=== PATIENT | female | born 1995 | race Caucasian/White ===

== ENCOUNTER 2016-06-05 09:26 | Emergency (ER) | payer SELFPAY ==
--- NOTE | 2016-06-05 09:38 | UC ---
Complaint Female HPI - HPI Summary HPI Summary: unsure of the date of her last period, took to home tests and found them to be positive--here today for confirmation of the test - History Of Current Complaint Chief Complaint: UCGeneralIllness Stated Complaint: TESTING Time Seen by Provider: 06/05/16 09:35 Hx Obtained From: Patient Hx Last Menstrual Period: 4 wks ?: Yes Pain Intensity: 0 Associated Signs And Symptoms: Positive: Negative Related Hx: - 0, Para - 0 - Allergies/Home Medications Allergies/Adverse Reactions: Allergies Allergy/AdvReac Type Severity Reaction Status Date / Time No Known Allergies Allergy Verified 11/30/14 18:03 PMH/Surg Hx/FS Hx/Imm Hx Previously Healthy: Yes Other History Of: Negative For: Anticoagulant Therapy - Surgical History Surgical History: None - Family History Known Family History: Positive: None Family History: denies cardio vascular issues in family lineage - Social History Occupation: Unemployed Lives: With Family Alcohol Use: None Substance Use Type: None Smoking Status (MU): Never Smoked Tobacco Review of Systems Constitutional: Negative Skin: Negative Eyes: Negative ENT: Negative Respiratory: Negative Cardiovascular: Negative Gastrointestinal: Negative Genitourinary: Negative Motor: Negative Neurovascular: Negative Musculoskeletal: Negative Neurological: Negative Psychological: Negative All Other Systems Reviewed And Are Negative: Yes Physical Exam Triage Information Reviewed: Yes Appearance: Well-Appearing, No Pain Distress, Well-Nourished Vital Signs Reviewed: Yes Eye Exam: Normal Eyes: Positive: Conjunctiva Clear ENT Exam: Normal ENT: Positive: Normal ENT inspection, Hearing grossly normal, Pharynx normal, TMs normal. Negative: Nasal congestion, Nasal drainage, Trismus, Muffled/ hoarse voice Neck exam: Normal Neck: Positive: Supple, Nontender, No Lymphadenopathy Respiratory Exam: Normal Respiratory: Positive: Chest non-tender, Lungs clear, Normal breath sounds, No respiratory distress, No accessory muscle use Cardiovascular Exam: Normal Cardiovascular: Positive: RRR, No Murmur, Pulses Normal, Brisk Capillary Refill Abdominal Exam: Normal Abdomen Description: Positive: Nontender, No Organomegaly, Soft Bowel Sounds: Positive: Present Musculoskeletal Exam: Normal Musculoskeletal: Positive: Strength Intact, ROM Intact, No Edema Neurological Exam: Normal Neurological: Positive: Alert, Muscle Tone Normal Psychological Exam: Normal Skin Exam: Normal Diagnostics - Laboratory Diagnostic Studies Completed/Ordered: urine preg (+) Complaint Female Dx - Course Course Of Treatment: follow with ob robert vits avoid, cigarettes, alcohol and unapproved drugs and medications - Differential Dx/Diagnosis Differential Diagnosis/HQI/PQRI: Pelvic Inflammatory Disease, , Urinary Tract Infection Provider Diagnoses: Discharge - Discharge Plan Condition: Stable Disposition: HOME Prescriptions: Vit W/ Docusate-Fe Fu [ 19] 1 tab PO DAILY #30 tab Patient Education Materials: Diet (GEN), First Trimester ( ED) Referrals: [facility] [Provider Group] No Primary Care Phys,NOPCP [Primary Care Provider] - Additional Instructions: Follow with PCP/OB-[facility] PASS[facility] ROBERT
[2016-06-05 09:45] VITALS: BP 158/59
== END 2016-06-05 10:15 | disposition home or self-care (01) ==
LOC: UCEAST 09:26
DX: Z32.01 Encounter for pregnancy test, result positive (principal)
CPT/HCPCS: 81025; 99212; G0463

== ENCOUNTER 2017-01-05 18:36 | Inpatient (IN) | payer OTHER ==
[2017-01-05] MEDS ORDERED: Dinoprostone* 10 MG VAG.SUPP VAGINAL ONE (21:00)
[2017-01-06 00:32] LABS: ALT 8 U/L (7-52); Albumin 3.3 g/dL (3.2-5.2); Alkaline Phosphatase 214 U/L (34-104); BUN/Creatinine Ratio 21.5 (8-20); Blood Urea Nitrogen 14 mg/dL (6-24); CO2 Carbon Dioxide 19 mmol/L (22-32); Calcium 8.6 mg/dL (8.6-10.3); Chloride 104 mmol/L (101-111); EGFR African American 146.6 (>60); Globulin 2.9 g/dL (2-4); Glucose 82 mg/dL (70-100); Sodium 133 mmol/L (133-145); Total Protein 6.2 g/dL (6.4-8.9); Uric Acid 7.3 mg/dL (2.3-6.6)
[2017-01-06 00:37] LABS: Anion Gap 10 mmol/L (2-11)
[2017-01-06 00:43] LABS: Hematocrit 38 % (35-47); Hemoglobin 13.1 g/dl (12.0-16.0); Mean Corpuscular HGB Conc 34 g/dl (31-36); Mean Corpuscular Hemoglobin 31 pg (27-31); Mean Corpuscular Volume 90 fL (80-97); Mean Platelet Volume 10 um3 (7.4-10.4); Red Blood Count 4.25 10^6/ul (4.0-5.4); Red Cell Distribution Width 13 % (10.5-15); White Blood Count 13.6 10^3/ul (3.5-10.8)
[2017-01-06] MEDS ORDERED: Nalbuphine* 20 MG/ML 1 ML VIAL IV ONE ×2 (00:56→06:00)
[2017-01-06] MEDS ORDERED: Promethazine INJ(RESTRICTED)* 25 MG/ML 1 ML VIAL IV ONE ×2 (00:56→06:00)
[2017-01-06] MEDS ORDERED: Nalbuphine* 20 MG/ML 1 ML VIAL ONE ×2 (01:02→06:08)
[2017-01-06] MEDS ORDERED: Promethazine INJ(RESTRICTED)* 25 MG/ML 1 ML VIAL ONE ×2 (01:02→06:08)
[2017-01-06] MEDS ORDERED: OBEPIDURAL* 250 ML ONE (08:33)
[2017-01-06] MEDS ORDERED: Sodium Citrate/Citric Acid* 15 ML UDC PO PRN (08:53)
[2017-01-06] MEDS ORDERED: Phenylephrine IV* 40 MCG/ML 10 ML SYRINGE IV PUSH PRN ×2 (08:53)
[2017-01-06] MEDS ORDERED: Famotidine TAB* 20 MG PO PRN (08:53)
[2017-01-06] MEDS ORDERED: OBEPIDURAL* 250 ML EPIDURAL SCH (09:00)
[2017-01-06] MEDS ORDERED: Oxytocin in LR* 20 UNITS/1,000 ML BAG IVPB ONE (10:03)
[2017-01-06] MEDS ORDERED: Varicella Virus Vaccine Live* 0.5 ML VIAL SUBCUT ONE (10:29)
[2017-01-06] MEDS ORDERED: Dibucaine 1% 28.35 GM TUBE PR PRN (10:29)
[2017-01-06] MEDS ORDERED: Glycerin ADULT SUPP PR PRN (10:29)
[2017-01-06] MEDS ORDERED: Acetaminophen TAB* 325 MG PO PRN (10:29)
[2017-01-06] MEDS ORDERED: Witch Hazel PAD* JAR TOPICAL PRN (10:29)
[2017-01-06] MEDS ORDERED: Oxytocin in LR* 20 UNITS/1,000 ML BAG IVPB SCH (11:00)
[2017-01-06] MEDS: Ibuprofen TAB* 600 MG PO PRN ×2 (12:29→19:43)
[2017-01-06] MEDS ORDERED: Simethicone CHEW TAB* 80 MG PO SCH (12:30)
[2017-01-06] MEDS: Docusate CAP* 100 MG PO SCH ×2 (14:32→19:43)
[2017-01-07] MEDS: Ibuprofen TAB* 600 MG PO PRN ×2 (01:59→17:01)
[2017-01-07 05:10] LABS: Hematocrit 36 % (35-47); Hemoglobin 12.2 g/dl (12.0-16.0); Mean Corpuscular HGB Conc 34 g/dl (31-36); Mean Corpuscular Hemoglobin 31 pg (27-31); Mean Corpuscular Volume 91 fL (80-97); Mean Platelet Volume 9 um3 (7.4-10.4); Red Blood Count 3.99 10^6/ul (4.0-5.4); Red Cell Distribution Width 13 % (10.5-15)
[2017-01-07] MEDS ORDERED: Varicella Virus Vaccine Live* 0.5 ML VIAL SUBCUT ONE (09:00)
[2017-01-07] MEDS ORDERED: Ferrous Gluconate TAB* 324 MG TAB PO SCH (09:00)
[2017-01-07] MEDS: Docusate CAP* 100 MG PO SCH ×3 (09:17→20:01)
[2017-01-07] MEDS: Prenatal Vitamin TAB PO SCH (09:18)
[2017-01-08] MEDS: Ibuprofen TAB* 600 MG PO PRN (06:33)
[2017-01-08] MEDS: Docusate CAP* 100 MG PO SCH (08:30)
[2017-01-08] MEDS: Prenatal Vitamin TAB PO SCH (08:30)
[2017-01-08 08:37] VITALS: BP 151/84
== END 2017-01-08 13:39 | disposition home or self-care (01) | DRG 560 ==
LOC: MCHOBOUT 18:36 → EEVIPCON 18:36 → MCHOB 20:36
PROVIDERS: ADMIT Obstetrics & Gynecology; ATTEND Obstetrics & Gynecology
PROC: 3E0P7GC Introduction of Other Therapeutic Substance into Female Reproductive, Via Natural or Artificial Opening (ICD-10-PCS; principal; 2017-01-05)
PROC: 10E0XZZ Delivery of Products of Conception, External Approach (ICD-10-PCS; 2017-01-06)
PROC: 4A1HXCZ Monitoring of Products of Conception, Cardiac Rate, External Approach (ICD-10-PCS; 2017-01-06)
DX: O36.5930 Maternal care for other known or suspected poor fetal growth, third trimester, not applicable or unspecified (principal); O16.4 Unspecified maternal hypertension, complicating childbirth; R11.10 Vomiting, unspecified; O69.1XX0 Labor and delivery complicated by cord around neck, with compression, not applicable or unspecified; Z3A.39 39 weeks gestation of pregnancy; Z37.0 Single live birth; O75.89 Other specified complications of labor and delivery; R51 Headache
CPT/HCPCS: 36415; 80053; 81002; 84550; 85025; 85027; 86850; 86900; 86901; A9270-GY; J2300; J2550